=== PATIENT | male | born 1985 | race Caucasian/White ===

== ENCOUNTER 2019-04-03 14:27 | Emergency (ER) | payer MEDICAID, OTHER ==
[~2019-04-03] VITALS: Ht 180.3 cm; Wt 86.4 kg
[~2019-04-03 14:27] MED LIST: ACET-2119 PO; BENZ1TAB7 PO; CITA-311 PO; HALO10TA13 PO; HALO5TAB PO
--- NOTE | 2019-04-03 15:26 | NUR ---
vascular study in progress
[2019-04-03 15:53] VITALS: BP 123/64
== END 2019-04-03 15:55 | disposition home or self-care (01) ==
LOC: ER 14:28
DX: I80.01 Phlebitis and thrombophlebitis of superficial vessels of right lower extremity (principal); F32.9 Major depressive disorder, single episode, unspecified; F15.90 Other stimulant use, unspecified, uncomplicated; F10.99 Alcohol use, unspecified with unspecified alcohol-induced disorder; Z98.890 Other specified postprocedural states; Z86.14 Personal history of Methicillin resistant Staphylococcus aureus infection; Z56.0 Unemployment, unspecified; Z88.5 Allergy status to narcotic agent; Z88.6 Allergy status to analgesic agent; Z79.899 Other long term (current) drug therapy; Y90.9 Presence of alcohol in blood, level not specified
CPT/HCPCS: 93971; 99284

== ENCOUNTER 2019-05-09 20:14 | Emergency (ER) | payer MEDICAID ==
[~2019-05-09] VITALS: Ht 180.3 cm; Wt 90.0 kg
[2019-05-09 20:25] VITALS: BP 126/87
[2019-05-09] MEDS ORDERED: triamcinolone acetonide 40mg/ml inj IM ONE (22:30)
[2019-05-09] MEDS ORDERED: PRED10TA23 PO (22:53)
== END 2019-05-09 23:05 | disposition home or self-care (01) ==
LOC: ER 20:15
DX: M25.532 Pain in left wrist (principal); L23.7 Allergic contact dermatitis due to plants, except food; F15.90 Other stimulant use, unspecified, uncomplicated; Z56.0 Unemployment, unspecified; Z98.890 Other specified postprocedural states; Z86.14 Personal history of Methicillin resistant Staphylococcus aureus infection; Z79.899 Other long term (current) drug therapy; Z88.5 Allergy status to narcotic agent
CPT/HCPCS: 73110; 96372; 99283; J3301

== ENCOUNTER 2019-07-18 10:36 | Emergency (ER) | payer MEDICAID ==
[~2019-07-18] VITALS: Ht 177.8 cm; Wt 78.1 kg
--- NOTE | 2019-07-18 12:19 | NUR ---
present with provider for physical exam
[2019-07-18] MEDS ORDERED: normal saline 1000ML IV soln IVB ONE (12:25)
[2019-07-18 12:36] LABS: CLARITY,URINE CLOUDY (Clear); COLOR,URINE YELLOW (Yellow); GLUCOSE, URINE NEGATIVE (Neg); KETONES,URINE NEGATIVE (Neg); LEUKOCYTE ESTERASE ,URINE SMALL (Neg); NITRITES, URINE POSITIVE (Neg); OCCULT BLOOD,URINE LARGE (Neg); PROTEIN,URINE 100 mg/dl (Neg)
[2019-07-18 12:42] LABS: UA COLLECTION TYPE NON-SPECIFIED
[2019-07-18 12:47] LABS: WBC,URINE 50-100 /HPF (0-4)
[2019-07-18 12:48] LABS: BACTERIA,URINE 4+ /HPF (Neg); MUCUS STRANDS MANY /LPF (Neg); RBC,URINE TNTC /HPF (0-2); SQUAMOUS EPITHELIAL CELL,UR MODERATE /LPF (FEW); TRANSITIONAL EPI CELLS,URINE MODERATE /HPF
[2019-07-18 12:49] LABS: HYALINE CASTS 0-3 /LPF (NEGATIVE); RENAL CELLS, URINE MODERATE /HPF
[2019-07-18 12:58] LABS: BASOPHILS % (AUTO) 0.5 % (0-1); EOSINOPHILS # (AUTO) 0.3 X10'3 (0-0.9); EOSINOPHILS % (AUTO) 3.2 % (0-6); HEMATOCRIT 43.2 % (42.0-52.0); HEMOGLOBIN 15.1 g/dl (14.0-17.9); LYMPHOCYTES # (AUTO) 1.2 X10'3 (1.1-4.8); LYMPHOCYTES % (AUTO) 14.4 % (21-51); MEAN CORPUSCULAR HEMOGLOBIN 29.9 PG (27.0-31.0); MEAN CORPUSCULAR VOLUME 85.3 FL (78-98); MEAN PLATELET VOLUME 6.8 FL (7.4-10.4); MONOCYTES # (AUTO) 0.3 X10'3 (0-0.9); MONOCYTES % (AUTO) 3.6 % (2-12); NEUTROPHILS # (AUTO) 6.7 X10'3 (1.8-7.7); NEUTROPHILS % (AUTO) 78.3 % (42-75); PLATELET COUNT 231 X10'3 (140-440); RED BLOOD COUNT 5.07 X10'6 (4.70-6.10); RED CELL DISTRIBUTION WIDTH 13.6 % (11.5-14.5); WHITE BLOOD COUNT 8.6 X10'3 (4.5-11.0)
[2019-07-18 13:16] LABS: ALBUMIN 3.6 G/DL (3.4-5.0); ALBUMIN/GLOBULIN RATIO 1.1 (1.1-1.5); ANION GAP 8 (8-16); BILIRUBIN,TOTAL 2.4 MG/DL (0.1-1.0); BLOOD UREA NITROGEN 10 MG/DL (7-18); BUN/CREATININE RATIO 10.9 (5.4-32.0); CALCIUM 9.1 MG/DL (8.5-10.1); CHLORIDE 103 MMOL/L (99-107); CREATININE 0.92 MG/DL (0.60-1.10); GLUCOSE 155 MG/DL (70-104); POTASSIUM 3.6 MMOL/L (3.5-5.1); SODIUM 138 MMOL/L (135-145); TOTAL CARBON DIOXIDE 26.7 MMOL/L (24-32); eGFR > 90 ML/MIN
[2019-07-18 13:17] LABS: ALANINE AMINOTRANSFERASE 23 U/L (12-78); ALKALINE PHOSPHATASE 103 IU/L (46-116); ASPARTATE AMINO TRANSFERASE 16 U/L (10-37); LIPASE 148 U/L (73-393)
[2019-07-18] MEDS ORDERED: PHEN-716 PO (13:18)
[2019-07-18] MEDS ORDERED: CEPH500C5 PO (13:18)
[2019-07-18 13:45] VITALS: BP 124/79
== END 2019-07-18 13:46 | disposition home or self-care (01) ==
LOC: ER 10:37
DX: N39.0 Urinary tract infection, site not specified (principal); R10.11 Right upper quadrant pain; R10.32 Left lower quadrant pain; F15.90 Other stimulant use, unspecified, uncomplicated; Z56.0 Unemployment, unspecified; Z98.890 Other specified postprocedural states; Z86.14 Personal history of Methicillin resistant Staphylococcus aureus infection; Z79.899 Other long term (current) drug therapy; Z88.5 Allergy status to narcotic agent; Z88.6 Allergy status to analgesic agent; Z87.442 Personal history of urinary calculi
CPT/HCPCS: 36415; 74176; 80053; 81001; 83690; 85025; 87077; 87088; 87186; 99284

== ENCOUNTER 2019-08-01 22:58 | Emergency (ER) | payer MEDICAID ==
[~2019-08-01] VITALS: Ht 180.3 cm; Wt 81.8 kg
[~2019-08-01 22:58] MED LIST changes: +PHEN-716 PO
[2019-08-02] MEDS ORDERED: ORPH100T2 PO (00:03)
[2019-08-02] MEDS ORDERED: orphenadrine citrate 60mg/2ml inj. IM ONE (00:05)
[2019-08-02 00:23] VITALS: BP 107/64
== END 2019-08-02 00:27 | disposition home or self-care (01) ==
LOC: ER 22:59
DX: M54.12 Radiculopathy, cervical region (principal); F32.9 Major depressive disorder, single episode, unspecified; F15.90 Other stimulant use, unspecified, uncomplicated; Z98.890 Other specified postprocedural states; Z56.0 Unemployment, unspecified; Z88.5 Allergy status to narcotic agent; Z86.14 Personal history of Methicillin resistant Staphylococcus aureus infection
CPT/HCPCS: 96372; 99283; J2360

== ENCOUNTER 2019-08-04 21:55 | Emergency (ER) | payer MEDICAID ==
[~2019-08-04 21:55] MED LIST changes: +ORPH100T2 PO
== END 2019-08-05 00:01 | disposition left against medical advice (07) ==
LOC: ER 21:57
DX: M54.2 Cervicalgia (principal); Z53.21 Procedure and treatment not carried out due to patient leaving prior to being seen by health care provider

== ENCOUNTER 2019-08-06 15:35 | Emergency (ER) | payer MEDICAID ==
[~2019-08-06] VITALS: Ht 180.3 cm; Wt 77.4 kg
[2019-08-06 15:40] VITALS: BP 138/93
[2019-08-06] MEDS ORDERED: BUPIVAcaine/PF 7.5 mg/ml (0.75%) 30ml vial IJ ONE (16:10)
[2019-08-06] MEDS ORDERED: BUPIVAcaine/PF 7.5mg/ml (0.75%) 10ml vial IJ ONE (16:15)
[2019-08-06] MEDS ORDERED: BUPIVAcaine/PF 5 mg/ml 10ml IJ ONE (16:20)
[2019-08-06] MEDS ORDERED: BUPIVAcaine 0.5% inj/PF 30 ml vial IJ ONE (16:20)
== END 2019-08-06 17:07 | disposition home or self-care (01) ==
LOC: ER 15:36
DX: M54.2 Cervicalgia (principal); F32.9 Major depressive disorder, single episode, unspecified; F15.90 Other stimulant use, unspecified, uncomplicated; Z88.5 Allergy status to narcotic agent; Z88.8 Allergy status to other drugs, medicaments and biological substances; Z79.899 Other long term (current) drug therapy; Z98.890 Other specified postprocedural states; Z56.0 Unemployment, unspecified; Z72.89 Other problems related to lifestyle; Z86.14 Personal history of Methicillin resistant Staphylococcus aureus infection
CPT/HCPCS: 20552; 99284

== ENCOUNTER 2019-08-10 21:44 | Emergency (ER) | payer MEDICAID ==
[~2019-08-10] VITALS: Ht 180.3 cm; Wt 77.3 kg
[2019-08-10 21:55] VITALS: BP 127/91
[2019-08-10 22:17] LABS: CLARITY,URINE CLOUDY (Clear); COLOR,URINE YELLOW (Yellow); GLUCOSE, URINE NEGATIVE (Neg); KETONES,URINE NEGATIVE (Neg); LEUKOCYTE ESTERASE ,URINE SMALL (Neg); NITRITES, URINE NEGATIVE (Neg); OCCULT BLOOD,URINE LARGE (Neg); PH,URINE 7.5 (4.8-8.0); PROTEIN,URINE 100 mg/dl (Neg)
[2019-08-10 22:23] LABS: UA COLLECTION TYPE CLN CATCH MIDSTREAM
[2019-08-10 22:27] LABS: BACTERIA,URINE FEW /HPF (Neg); RBC,URINE 20-50 /HPF (0-2); RENAL CELLS, URINE MODERATE /HPF; SQUAMOUS EPITHELIAL CELL,UR FEW /LPF (FEW)
[2019-08-10 22:28] LABS: YEAST MODERATE /HPF (NEGATIVE)
[2019-08-10] MEDS ORDERED: LIDOcaine 5% patch TP STA (22:31)
[2019-08-10] MEDS ORDERED: cyclobenzaprine 10mg tablet PO ONE (22:35)
[2019-08-10] MEDS ORDERED: pregabalin 75mg capsule PO ONE (22:35)
[2019-08-10] MEDS ORDERED: HYDROcodone/acetaminophen 5mg/325mg tablet PO ONE (22:35)
[2019-08-10] MEDS ORDERED: ketorolac trometh. 30mg/ml inj. IM ONE (22:35)
[2019-08-10] MEDS ORDERED: CIPR-230 PO (22:37)
[2019-08-10] MEDS ORDERED: HYDR-4383 PO (22:37)
== END 2019-08-10 22:56 | disposition home or self-care (01) ==
LOC: ER 21:44
DX: M54.2 Cervicalgia (principal); N39.0 Urinary tract infection, site not specified; M25.511 Pain in right shoulder; F32.9 Major depressive disorder, single episode, unspecified; F15.90 Other stimulant use, unspecified, uncomplicated; Z86.14 Personal history of Methicillin resistant Staphylococcus aureus infection; Z86.19 Personal history of other infectious and parasitic diseases; Z72.89 Other problems related to lifestyle; Z98.890 Other specified postprocedural states; Z56.0 Unemployment, unspecified; Z88.5 Allergy status to narcotic agent; Z79.899 Other long term (current) drug therapy
CPT/HCPCS: 81001; 87088; 99284

== ENCOUNTER 2019-10-30 13:30 | Emergency (ER) | payer MEDICAID ==
[~2019-10-30] VITALS: Ht 180.3 cm; Wt 66.4 kg
[~2019-10-30 13:30] MED LIST changes: +HYDR-4383 PO
[2019-10-30 13:34] VITALS: BP 117/74
[2019-10-30] MEDS ORDERED: HYDR-3686 PO (14:26)
== END 2019-10-30 14:46 | disposition home or self-care (01) ==
LOC: ER 13:31
DX: F41.9 Anxiety disorder, unspecified (principal); F15.90 Other stimulant use, unspecified, uncomplicated; F32.9 Major depressive disorder, single episode, unspecified; F17.200 Nicotine dependence, unspecified, uncomplicated; Z86.14 Personal history of Methicillin resistant Staphylococcus aureus infection; Z98.890 Other specified postprocedural states; Z72.89 Other problems related to lifestyle; Z56.0 Unemployment, unspecified; Z88.5 Allergy status to narcotic agent; Z79.899 Other long term (current) drug therapy
CPT/HCPCS: 99283

== ENCOUNTER 2019-11-24 16:40 | Emergency (ER) | payer MEDICAID ==
[~2019-11-24] VITALS: Ht 180.3 cm; Wt 84.4 kg
[2019-11-24 16:51] VITALS: BP 110/65
[2019-11-24] MEDS ORDERED: CefTRIAXone 250MG IM Kit w/LIDOcaine IM ONE (17:30)
[2019-11-24] MEDS ORDERED: azithromycin 250mg tablet PO ONE (17:30)
== END 2019-11-24 18:16 | disposition home or self-care (01) ==
LOC: ER 16:40
DX: A54.9 Gonococcal infection, unspecified (principal); A74.9 Chlamydial infection, unspecified; F41.9 Anxiety disorder, unspecified; F32.9 Major depressive disorder, single episode, unspecified; F15.90 Other stimulant use, unspecified, uncomplicated; Z86.14 Personal history of Methicillin resistant Staphylococcus aureus infection; Z98.890 Other specified postprocedural states; Z72.89 Other problems related to lifestyle; Z56.0 Unemployment, unspecified; Z88.5 Allergy status to narcotic agent; Z88.6 Allergy status to analgesic agent; Z79.899 Other long term (current) drug therapy
CPT/HCPCS: 36415; 87491; 87591; 96372; 99283; J0696

== ENCOUNTER 2020-04-16 23:24 | Emergency (ER) | payer MEDICAID ==
[~2020-04-16] VITALS: Ht 180.3 cm; Wt 88.6 kg
[2020-04-16 23:34] VITALS: BP 136/91
== END 2020-04-17 00:46 | disposition left against medical advice (07) ==
LOC: ER 23:25
DX: R51.9 Headache, unspecified (principal); Z53.21 Procedure and treatment not carried out due to patient leaving prior to being seen by health care provider

== ENCOUNTER 2020-04-28 01:04 | Emergency (ER) | payer MEDICAID ==
[~2020-04-28] VITALS: Ht 180.3 cm; Wt 86.4 kg
[2020-04-28 01:10] VITALS: BP 129/90
[2020-04-28] MEDS ORDERED: DOXYCYCLINE 100MG CAPSULE PO STA (01:29)
[2020-04-28] MEDS ORDERED: DOXY100C43 PO (01:30)
== END 2020-04-28 01:48 | disposition home or self-care (01) ==
LOC: ER 01:05
DX: J34.0 Abscess, furuncle and carbuncle of nose (principal); B15.9 Hepatitis A without hepatic coma; F41.9 Anxiety disorder, unspecified; F32.9 Major depressive disorder, single episode, unspecified; F15.10 Other stimulant abuse, uncomplicated; Z56.0 Unemployment, unspecified; Z98.890 Other specified postprocedural states; Z88.5 Allergy status to narcotic agent; Z88.6 Allergy status to analgesic agent; Z79.899 Other long term (current) drug therapy; Z79.1 Long term (current) use of non-steroidal anti-inflammatories (NSAID)
CPT/HCPCS: 99283

== ENCOUNTER 2020-08-19 13:15 | Emergency (ER) | payer MEDICAID ==
[~2020-08-19] VITALS: Ht 182.9 cm; Wt 86.4 kg
[2020-08-19 13:33] VITALS: BP 114/76
--- NOTE | 2020-08-19 14:04 | NUR ---
Called to treatment area, not in lobby
--- NOTE | 2020-08-19 14:54 | NUR ---
Continues to not be in the lobby
--- NOTE | 2020-08-19 15:08 | NUR ---
Not in lobby
== END 2020-08-19 15:09 | disposition left against medical advice (07) ==
LOC: ER 13:16
DX: G58.9 Mononeuropathy, unspecified (principal); Z53.21 Procedure and treatment not carried out due to patient leaving prior to being seen by health care provider

== ENCOUNTER 2020-11-15 12:36 | Emergency (ER) | payer MEDICAID ==
[~2020-11-15] VITALS: Ht 180.3 cm; Wt 84.1 kg
[2020-11-15 13:45] VITALS: BP 133/82
[2020-11-15] MEDS ORDERED: benzonatate 100mg capsule PO ONE (14:15)
== END 2020-11-15 14:30 | disposition left against medical advice (07) ==
LOC: ER 12:36
DX: S05.01XA Injury of conjunctiva and corneal abrasion without foreign body, right eye, initial encounter (principal); K40.91 Unilateral inguinal hernia, without obstruction or gangrene, recurrent; H11.31 Conjunctival hemorrhage, right eye; F41.9 Anxiety disorder, unspecified; F32.9 Major depressive disorder, single episode, unspecified; Z56.0 Unemployment, unspecified; X58.XXXA Exposure to other specified factors, initial encounter; Y93.89 Activity, other specified; Y92.89 Other specified places as the place of occurrence of the external cause; Y99.8 Other external cause status
CPT/HCPCS: 71045; 99283

== ENCOUNTER 2020-11-16 14:45 | Emergency (ER) | payer MEDICAID ==
[~2020-11-16] VITALS: Ht 180.3 cm; Wt 86.4 kg
[2020-11-16 15:23] VITALS: BP 106/73
[2020-11-17] MEDS ORDERED: ALBU6.7H9 INH (06:10)
[2020-11-17] MEDS ORDERED: PRED20TA PO (06:10)
== END 2020-11-16 18:52 | disposition left against medical advice (07) ==
LOC: ER 14:46
DX: R51.9 Headache, unspecified (principal); Z53.21 Procedure and treatment not carried out due to patient leaving prior to being seen by health care provider

== ENCOUNTER 2020-11-17 04:29 | Emergency (ER) | payer MEDICAID ==
[~2020-11-17] VITALS: Ht 180.3 cm; Wt 84.0 kg
[2020-11-17 04:34] VITALS: BP 116/81
[2020-11-17] MEDS ORDERED: albuterol 2.5 MG/3 ML nebule NEB ONE ×2 (04:40→06:10)
[2020-11-17] MEDS ORDERED: predniSONE 20 mg tablet PO ONE (04:50)
[2020-11-17] MEDS ORDERED: PRED20TA PO (06:10)
[2020-11-17] MEDS ORDERED: ALBU6.7H9 INH (06:10)
== END 2020-11-17 06:51 | disposition home or self-care (01) ==
LOC: ER 04:30
DX: J45.901 Unspecified asthma with (acute) exacerbation (principal); Z20.822 Contact with and (suspected) exposure to COVID-19; F41.9 Anxiety disorder, unspecified; F32.9 Major depressive disorder, single episode, unspecified; F15.90 Other stimulant use, unspecified, uncomplicated; Z86.14 Personal history of Methicillin resistant Staphylococcus aureus infection; Z86.19 Personal history of other infectious and parasitic diseases; Z72.89 Other problems related to lifestyle; Z98.890 Other specified postprocedural states; Z56.0 Unemployment, unspecified; Z88.2 Allergy status to sulfonamides; Z88.5 Allergy status to narcotic agent; Z88.8 Allergy status to other drugs, medicaments and biological substances; Z88.6 Allergy status to analgesic agent; Z79.899 Other long term (current) drug therapy
CPT/HCPCS: 71045; 87635; 93005; 94640; 99285; C9803; J7512; 94760

== ENCOUNTER 2022-02-21 09:46 | Emergency (ER) | payer MEDICAID ==
[~2022-02-21] VITALS: Ht 180.3 cm; Wt 88.6 kg
[~2022-02-21 09:46] MED LIST changes: +ALBU6.7H9 INH
[2022-02-21 09:50] VITALS: BP 125/78
== END 2022-02-21 12:05 | disposition home or self-care (01) ==
LOC: ER 09:48
DX: M54.50 Low back pain, unspecified (principal); G89.29 Other chronic pain; F12.90 Cannabis use, unspecified, uncomplicated; F15.20 Other stimulant dependence, uncomplicated; Z88.2 Allergy status to sulfonamides; Z88.5 Allergy status to narcotic agent; Z88.6 Allergy status to analgesic agent; Z56.0 Unemployment, unspecified
CPT/HCPCS: 99284

== ENCOUNTER 2022-02-25 02:19 | Emergency (ER) | payer MEDICAID ==
[~2022-02-25] VITALS: Ht 180.3 cm; Wt 90.0 kg
[2022-02-25 02:36] VITALS: BP 134/90
[2022-02-25] MEDS ORDERED: LORazepam 1 MG tablet PO ONE (02:50)
== END 2022-02-25 03:50 | disposition home or self-care (01) ==
LOC: ER 02:19
DX: F41.9 Anxiety disorder, unspecified (principal); M54.89 Other dorsalgia; G89.29 Other chronic pain; F12.90 Cannabis use, unspecified, uncomplicated; F15.90 Other stimulant use, unspecified, uncomplicated; F32.A Depression, unspecified; Z86.19 Personal history of other infectious and parasitic diseases; Z86.14 Personal history of Methicillin resistant Staphylococcus aureus infection; Z98.890 Other specified postprocedural states; Z72.89 Other problems related to lifestyle; Z56.0 Unemployment, unspecified; Z88.6 Allergy status to analgesic agent; Z88.2 Allergy status to sulfonamides; Z88.5 Allergy status to narcotic agent; Z79.899 Other long term (current) drug therapy
CPT/HCPCS: 99283

== ENCOUNTER 2022-02-25 15:12 | Emergency (ER) | payer MEDICAID ==
[~2022-02-25] VITALS: Ht 180.3 cm; Wt 90.0 kg
[2022-02-25 15:20] VITALS: BP 110/76
[2022-02-25] MEDS ORDERED: HYDROcodone/acetaminophen 5mg/325mg tablet PO ONE (17:25)
== END 2022-02-25 18:48 | disposition left against medical advice (07) ==
LOC: ER 15:13
DX: M79.89 Other specified soft tissue disorders (principal); M79.602 Pain in left arm; G89.29 Other chronic pain; M54.9 Dorsalgia, unspecified; F31.9 Bipolar disorder, unspecified; F12.10 Cannabis abuse, uncomplicated; F15.10 Other stimulant abuse, uncomplicated; Z56.0 Unemployment, unspecified; Z86.14 Personal history of Methicillin resistant Staphylococcus aureus infection; Z88.6 Allergy status to analgesic agent; Z88.2 Allergy status to sulfonamides; Z88.5 Allergy status to narcotic agent; Z79.899 Other long term (current) drug therapy; Z79.1 Long term (current) use of non-steroidal anti-inflammatories (NSAID)
CPT/HCPCS: 73110; 73130; 99283; 99284

== ENCOUNTER 2022-04-05 10:41 | Emergency (ER) | payer MEDICAID ==
[~2022-04-05] VITALS: Ht 180.3 cm; Wt 86.0 kg
[~2022-04-05 10:41] MED LIST changes: +ALBU6.7H14 INH; -ALBU6.7H9 INH
[2022-04-05 12:27] LABS: BASOPHILS # (AUTO) 0.1 X10'3 (0-0.2); BASOPHILS % (AUTO) 1.1 % (0-1); EOSINOPHILS # (AUTO) 0.4 X10'3 (0-0.9); EOSINOPHILS % (AUTO) 6.5 % (0-6); HEMATOCRIT 43.6 % (42.0-52.0); HEMOGLOBIN 15.3 g/dl (14.0-17.9); LYMPHOCYTES # (AUTO) 1.1 X10'3 (1.1-4.8); LYMPHOCYTES % (AUTO) 20.3 % (21-51); MEAN CORPUSCULAR HEMOGLOBIN 30.1 PG (27.0-31.0); MEAN CORPUSCULAR HGB CONC 35.1 g/dL (33.0-36.5); MEAN CORPUSCULAR VOLUME 85.9 FL (78-98); MEAN PLATELET VOLUME 7.2 FL (7.4-10.4); MONOCYTES # (AUTO) 0.3 X10'3 (0-0.9); MONOCYTES % (AUTO) 4.8 % (2-12); NEUTROPHILS # (AUTO) 3.8 X10'3 (1.8-7.7); NEUTROPHILS % (AUTO) 67.3 % (42-75); PLATELET COUNT 212 X10'3 (140-440); RED BLOOD COUNT 5.07 X10'6 (4.70-6.10); RED CELL DISTRIBUTION WIDTH 13.9 % (11.5-14.5); WHITE BLOOD COUNT 5.6 X10'3 (4.5-11.0)
[2022-04-05 12:29] LABS: CLARITY,URINE CLEAR (Clear); COLOR,URINE YELLOW (Yellow); GLUCOSE, URINE NEGATIVE (Neg); KETONES,URINE NEGATIVE (Neg); LEUKOCYTE ESTERASE ,URINE NEGATIVE (Neg); NITRITES, URINE NEGATIVE (Neg); OCCULT BLOOD,URINE NEGATIVE (Neg); PROTEIN,URINE NEGATIVE (Neg); UROBILINOGEN,URINE 0.2 E.U/dL (0.2-1.0)
[2022-04-05 12:30] LABS: UA COLLECTION TYPE VOIDED
[2022-04-05 12:45] LABS: ALANINE AMINOTRANSFERASE 20 U/L (12-78); ALBUMIN 3.7 G/DL (3.4-5.0); ALBUMIN/GLOBULIN RATIO 1.2 (1.1-1.5); ALKALINE PHOSPHATASE 98 IU/L (46-116); ANION GAP 10 (8-16); ASPARTATE AMINO TRANSFERASE 14 U/L (10-37); BILIRUBIN,TOTAL 0.9 MG/DL (0.1-1.0); BLOOD UREA NITROGEN 13 MG/DL (7-18); BUN/CREATININE RATIO 16.3 (5.4-32.0); CALCIUM 8.7 MG/DL (8.5-10.1); CHLORIDE 107 MMOL/L (99-107); GLUCOSE 95 MG/DL (70-104); LIPASE 164 U/L (73-393); POTASSIUM 3.9 MMOL/L (3.5-5.1); SODIUM 144 MMOL/L (135-145); TOTAL PROTEIN 6.8 G/DL (6.4-8.2); eGFR > 90 ML/MIN
[2022-04-05] MEDS ORDERED: ondansetron 4mg rapidly disintigrating tab PO ONE (13:02)
[2022-04-05] MEDS ORDERED: ONDA4TAB12 PO (13:32)
[2022-04-05 13:41] VITALS: BP 130/73
== END 2022-04-05 13:46 | disposition home or self-care (01) ==
LOC: ER 10:42
DX: R10.11 Right upper quadrant pain (principal); R19.7 Diarrhea, unspecified; K59.00 Constipation, unspecified; K74.60 Unspecified cirrhosis of liver; G89.29 Other chronic pain; M54.9 Dorsalgia, unspecified; F31.9 Bipolar disorder, unspecified; F12.10 Cannabis abuse, uncomplicated; F15.10 Other stimulant abuse, uncomplicated; Z56.0 Unemployment, unspecified; Z86.14 Personal history of Methicillin resistant Staphylococcus aureus infection; Z88.2 Allergy status to sulfonamides; Z88.5 Allergy status to narcotic agent; Z88.6 Allergy status to analgesic agent; Z79.899 Other long term (current) drug therapy; Z79.1 Long term (current) use of non-steroidal anti-inflammatories (NSAID); Z79.2 Long term (current) use of antibiotics
CPT/HCPCS: 36415; 76700; 80053; 81003; 83690; 85025; 99284

== ENCOUNTER 2022-04-11 19:10 | Emergency (ER) | payer MEDICAID ==
[~2022-04-11 19:10] MED LIST changes: +ONDA4TAB12 PO
== END 2022-04-11 22:17 | disposition left against medical advice (07) ==
LOC: ER 19:11
DX: H57.10 Ocular pain, unspecified eye (principal); Z53.21 Procedure and treatment not carried out due to patient leaving prior to being seen by health care provider

== ENCOUNTER 2022-04-25 01:55 | Emergency (ER) | payer MEDICAID ==
[~2022-04-25] VITALS: Ht 180.3 cm; Wt 86.4 kg
[2022-04-25 02:03] VITALS: BP 137/57
== END 2022-04-25 02:24 | disposition left against medical advice (07) ==
LOC: ER 01:56
DX: Z04.6 Encounter for general psychiatric examination, requested by authority (principal); Z53.21 Procedure and treatment not carried out due to patient leaving prior to being seen by health care provider

== ENCOUNTER 2022-05-17 18:10 | Emergency (ER) | payer MEDICAID ==
[~2022-05-17] VITALS: Ht 180.3 cm; Wt 88.6 kg
--- NOTE | 2022-05-17 19:00 | NUR ---
Per poison control: Propanolol OD symptoms include hypotension, bradycardia, and increased risk of seizures. Treat symptomatically with fluid, pressors, glucagon, atropine, and benzos. Symptoms for Ablilify an Seroquel symptoms include tachycardia, siezures, and QTc prolongation. Primary treatment with benzodiazepines. Flomax is relatively benign. Labs to include CBC. CMP, acetaminophen level, aspirin level, and an EKG. Because of number of pills he has reported taking, pt should be on overnight observation.
[2022-05-17 19:08] LABS: ALANINE AMINOTRANSFERASE 16 U/L (12-78); ALBUMIN 3.7 G/DL (3.4-5.0); ALBUMIN/GLOBULIN RATIO 1.1 (1.1-1.5); ALKALINE PHOSPHATASE 99 IU/L (46-116); ANION GAP 10 (8-16); ASPARTATE AMINO TRANSFERASE 16 U/L (10-37); BASOPHILS # (AUTO) 0.1 X10'3 (0-0.2); BILIRUBIN,TOTAL 1.1 MG/DL (0.1-1.0); BLOOD UREA NITROGEN 18 MG/DL (7-18); BUN/CREATININE RATIO 20.5 (5.4-32.0); CALCIUM 8.9 MG/DL (8.5-10.1); CHLORIDE 106 MMOL/L (99-107); CREATININE 0.88 MG/DL (0.60-1.10); GLUCOSE 107 MG/DL (70-104); HEMOGLOBIN 15.6 g/dl (14.0-17.9); POTASSIUM 4.1 MMOL/L (3.5-5.1); SODIUM 142 MMOL/L (135-145); TOTAL CARBON DIOXIDE 26.2 MMOL/L (24-32); TOTAL PROTEIN 7.2 G/DL (6.4-8.2); eGFR > 90 ML/MIN
[2022-05-17 19:09] LABS: ACETAMINOPHEN < 2.0 UG/ML (10-30); ETHANOL < 0.010 GM/DL (0.0-0.010)
[2022-05-17 19:10] LABS: BASOPHILS % (AUTO) 1.2 % (0-1); EOSINOPHILS # (AUTO) 0.4 X10'3 (0-0.9); EOSINOPHILS % (AUTO) 6.2 % (0-6); HEMATOCRIT 44.4 % (42.0-52.0); LYMPHOCYTES # (AUTO) 1.8 X10'3 (1.1-4.8); LYMPHOCYTES % (AUTO) 26.4 % (21-51); MEAN CORPUSCULAR HEMOGLOBIN 30.5 PG (27.0-31.0); MEAN CORPUSCULAR HGB CONC 35.1 g/dL (33.0-36.5); MEAN CORPUSCULAR VOLUME 86.8 FL (78-98); MEAN PLATELET VOLUME 7.1 FL (7.4-10.4); MONOCYTES # (AUTO) 0.3 X10'3 (0-0.9); MONOCYTES % (AUTO) 4.9 % (2-12); NEUTROPHILS # (AUTO) 4.1 X10'3 (1.8-7.7); NEUTROPHILS % (AUTO) 61.3 % (42-75); PLATELET COUNT 299 X10'3 (140-440); RED BLOOD COUNT 5.12 X10'6 (4.70-6.10); RED CELL DISTRIBUTION WIDTH 13.6 % (11.5-14.5); WHITE BLOOD COUNT 6.8 X10'3 (4.5-11.0)
[2022-05-17] MEDS ORDERED: normal saline 1000ML IV soln IVB ONE (19:45)
[2022-05-17 23:31] LABS: CLARITY,URINE CLEAR (Clear); COLOR,URINE AMBER (Yellow); GLUCOSE, URINE NEGATIVE (Neg); KETONES,URINE NEGATIVE (Neg); LEUKOCYTE ESTERASE ,URINE NEGATIVE (Neg); NITRITES, URINE NEGATIVE (Neg); OCCULT BLOOD,URINE NEGATIVE (Neg); PROTEIN,URINE NEGATIVE (Neg); UROBILINOGEN,URINE 0.2 E.U/dL (0.2-1.0)
[2022-05-17 23:35] LABS: URINE AMPHETAMINE SCREEN NEGATIVE (Neg); URINE BARBITUATE SCREEN NEGATIVE (Neg); URINE BENZODIAZEPINES SCREEN NEGATIVE (Neg); URINE CANNABINOID SCREEN POSITIVE (Neg); URINE COCAINE SCREEN NEGATIVE (Neg); URINE METHADONE SCREEN NEGATIVE (Neg); URINE OPIATE SCREEN NEGATIVE (Neg); URINE PHENCYCLIDINE SCREEN NEGATIVE (Neg)
[2022-05-17 23:37] LABS: UA COLLECTION TYPE URINAL
[2022-05-18] MEDS ORDERED: normal saline 1000ML IV soln IVB ONE (02:50)
[2022-05-18 07:51] VITALS: BP 106/67
== END 2022-05-18 07:52 | disposition home or self-care (01) ==
LOC: ER 18:12
DX: T50.991A Poisoning by other drugs, medicaments and biological substances, accidental (unintentional), initial encounter (principal); R11.10 Vomiting, unspecified; G89.29 Other chronic pain; M54.9 Dorsalgia, unspecified; F31.9 Bipolar disorder, unspecified; F15.10 Other stimulant abuse, uncomplicated; F12.10 Cannabis abuse, uncomplicated; Z88.6 Allergy status to analgesic agent; Z88.2 Allergy status to sulfonamides; Z79.899 Other long term (current) drug therapy; Y92.89 Other specified places as the place of occurrence of the external cause
CPT/HCPCS: 36415; 80053; 80305; 80320; 80329; 81003; 85025; 93005; 96360; 96361; 99285; J7030; A6258

== ENCOUNTER 2022-05-23 17:00 | Emergency (ER) | payer MEDICAID ==
[~2022-05-23] VITALS: Ht 177.8 cm; Wt 72.7 kg
[2022-05-23] MEDS ORDERED: diazepam 5mg tablet PO ONE (17:30)
[2022-05-23 18:27] LABS: BASOPHILS # (AUTO) 0.1 X10'3 (0-0.2); EOSINOPHILS # (AUTO) 0.5 X10'3 (0-0.9); EOSINOPHILS % (AUTO) 6.4 % (0-6); HEMATOCRIT 48.5 % (42.0-52.0); HEMOGLOBIN 16.3 g/dl (14.0-17.9); LYMPHOCYTES # (AUTO) 1.6 X10'3 (1.1-4.8); LYMPHOCYTES % (AUTO) 21.4 % (21-51); MEAN CORPUSCULAR HEMOGLOBIN 29.3 PG (27.0-31.0); MEAN CORPUSCULAR HGB CONC 33.6 g/dL (33.0-36.5); MEAN CORPUSCULAR VOLUME 87.2 FL (78-98); MEAN PLATELET VOLUME 7.2 FL (7.4-10.4); MONOCYTES # (AUTO) 0.4 X10'3 (0-0.9); MONOCYTES % (AUTO) 4.9 % (2-12); NEUTROPHILS % (AUTO) 66.3 % (42-75); PLATELET COUNT 296 X10'3 (140-440); RED BLOOD COUNT 5.56 X10'6 (4.70-6.10); RED CELL DISTRIBUTION WIDTH 14.2 % (11.5-14.5); WHITE BLOOD COUNT 7.6 X10'3 (4.5-11.0)
[2022-05-23 18:40] LABS: ALANINE AMINOTRANSFERASE 17 U/L (12-78); ALBUMIN/GLOBULIN RATIO 1.1 (1.1-1.5); ALKALINE PHOSPHATASE 107 IU/L (46-116); ANION GAP 12 (8-16); ASPARTATE AMINO TRANSFERASE 16 U/L (10-37); BILIRUBIN,TOTAL 1.5 MG/DL (0.1-1.0); BLOOD UREA NITROGEN 15 MG/DL (7-18); BUN/CREATININE RATIO 18.8 (5.4-32.0); CALCIUM 9.1 MG/DL (8.5-10.1); CHLORIDE 104 MMOL/L (99-107); GLUCOSE 101 MG/DL (70-104); POTASSIUM 3.9 MMOL/L (3.5-5.1); SODIUM 142 MMOL/L (135-145); TOTAL CARBON DIOXIDE 25.6 MMOL/L (24-32); TOTAL PROTEIN 7.5 G/DL (6.4-8.2); eGFR > 90 ML/MIN
[2022-05-23 18:50] LABS: ETHANOL < 0.010 GM/DL (0.0-0.010)
[2022-05-23 18:58] LABS: ACETAMINOPHEN < 2.0 UG/ML (10-30)
[2022-05-23 19:23] LABS: URINE AMPHETAMINE SCREEN NEGATIVE (Neg); URINE BARBITUATE SCREEN NEGATIVE (Neg); URINE BENZODIAZEPINES SCREEN NEGATIVE (Neg); URINE CANNABINOID SCREEN POSITIVE (Neg); URINE COCAINE SCREEN NEGATIVE (Neg); URINE METHADONE SCREEN NEGATIVE (Neg); URINE OPIATE SCREEN NEGATIVE (Neg); URINE PHENCYCLIDINE SCREEN NEGATIVE (Neg)
[2022-05-23] MEDS ORDERED: ketamine 50 mg/ml 10ml vial ONE (20:19)
[2022-05-23] MEDS ORDERED: ketamine 50 mg/ml 10ml vial IM ONE (20:20)
--- NOTE | 2022-05-23 21:18 | NUR ---
Pt attempted to elope. 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 Staff attempted to redirect pt back inside, however this did not work. Security and [employer] were called and the Pt began yelling, and fighting. Dr. Dennis ordered 200 mg of ketamine to be given IM stat. [employer] arrived, and additional staff arrived to help redirect pt. As ordered by EDMD, pt was placed in behavoral restraints and brought back into the hospital. Pt was placed back on the monitors and is being observed. Visitor was asked to leave, as she appeared to be the cause of the disruption.
[2022-05-23] MEDS ORDERED: ondansetron/PF 4mg/2ml inj IV ONE (21:25)
--- NOTE | 2022-05-23 21:28 | NUR ---
was going to start an IV to adm Some zofran to ease his nausea as he did vomit and he said no. made aware.
[2022-05-23] MEDS ORDERED: ondansetron 4mg rapidly disintigrating tab PO ONE (21:30)
--- NOTE | 2022-05-23 22:50 | NUR ---
Pt up to the BR, ambulated fine. He is pleasant and cooperative. Med rec was done. Signed by and faxed to the pharmacy.
[2022-05-23] MEDS ORDERED: QUET25TA PO (22:57)
[2022-05-23] MEDS ORDERED: QUEtiapine 25mg tablet PO SCH (23:26)
--- NOTE | 2022-05-24 02:41 | NUR ---
[facility] mental health packet faxed at [phone]
--- NOTE | 2022-05-24 05:54 | NUR ---
pt awaken for vitals, pt ambulated to bathroom and back w/o difficulty
[2022-05-24 05:59] VITALS: BP 120/71
--- NOTE | 2022-05-24 08:54 | NUR ---
tony sent packet to [facility] at [phone].
== END 2022-05-24 14:16 ==
LOC: EEVIPCON 17:01 → ER 17:01
DX: R45.851 Suicidal ideations (principal); F12.10 Cannabis abuse, uncomplicated; F15.10 Other stimulant abuse, uncomplicated; G89.29 Other chronic pain; M54.9 Dorsalgia, unspecified; F31.9 Bipolar disorder, unspecified
CPT/HCPCS: 36415; 80053; 80305; 80320; 80329; 84443; 85025; 99285; C2617; J3490

== ENCOUNTER 2022-06-06 23:35 | Emergency (ER) | payer MEDICAID ==
[~2022-06-06] VITALS: Ht 180.3 cm; Wt 77.3 kg
[~2022-06-06 23:35] MED LIST changes: -ACET-2119 PO; -ALBU6.7H14 INH; -BENZ1TAB7 PO; -CITA-311 PO; -HALO10TA13 PO; -HALO5TAB PO; -HYDR-4383 PO; -ONDA4TAB12 PO; -ORPH100T2 PO; -PHEN-716 PO; +QUET25TA PO
[2022-06-06 23:54] VITALS: BP 124/77
[2022-06-07] MEDS ORDERED: OLANZapine 2.5MG tablet PO SCH ×2 (00:50→08:00)
== END 2022-06-07 01:09 | disposition home or self-care (01) ==
LOC: ER 23:39
DX: F15.10 Other stimulant abuse, uncomplicated (principal); F41.9 Anxiety disorder, unspecified; G89.29 Other chronic pain; F32.9 Major depressive disorder, single episode, unspecified; F17.200 Nicotine dependence, unspecified, uncomplicated; F12.90 Cannabis use, unspecified, uncomplicated; Z56.0 Unemployment, unspecified; Z86.19 Personal history of other infectious and parasitic diseases; Z72.89 Other problems related to lifestyle; Z88.2 Allergy status to sulfonamides; Z88.5 Allergy status to narcotic agent; Z88.6 Allergy status to analgesic agent; Z79.899 Other long term (current) drug therapy; Z98.890 Other specified postprocedural states
CPT/HCPCS: 99283

== ENCOUNTER 2022-06-07 04:08 | Emergency (ER) | payer MEDICAID ==
[~2022-06-07] VITALS: Ht 180.3 cm; Wt 77.0 kg
[2022-06-07 07:38] LABS: BASOPHILS % (AUTO) 0.7 % (0-1); EOSINOPHILS # (AUTO) 0.3 X10'3 (0-0.9); EOSINOPHILS % (AUTO) 4.6 % (0-6); HEMATOCRIT 42.3 % (42.0-52.0); LYMPHOCYTES # (AUTO) 1.1 X10'3 (1.1-4.8); LYMPHOCYTES % (AUTO) 18.1 % (21-51); MEAN CORPUSCULAR HEMOGLOBIN 30.2 PG (27.0-31.0); MEAN CORPUSCULAR HGB CONC 35.5 g/dL (33.0-36.5); MEAN CORPUSCULAR VOLUME 85.1 FL (78-98); MEAN PLATELET VOLUME 7.5 FL (7.4-10.4); MONOCYTES # (AUTO) 0.3 X10'3 (0-0.9); MONOCYTES % (AUTO) 5.5 % (2-12); NEUTROPHILS # (AUTO) 4.2 X10'3 (1.8-7.7); NEUTROPHILS % (AUTO) 71.1 % (42-75); PLATELET COUNT 206 X10'3 (140-440); RED BLOOD COUNT 4.97 X10'6 (4.70-6.10); RED CELL DISTRIBUTION WIDTH 13.8 % (11.5-14.5); WHITE BLOOD COUNT 5.9 X10'3 (4.5-11.0)
[2022-06-07 07:44] LABS: ALANINE AMINOTRANSFERASE 35 U/L (12-78); ALBUMIN 3.5 G/DL (3.4-5.0); ALBUMIN/GLOBULIN RATIO 1.1 (1.1-1.5); ALKALINE PHOSPHATASE 105 IU/L (46-116); ANION GAP 7 (8-16); ASPARTATE AMINO TRANSFERASE 33 U/L (10-37); BILIRUBIN,TOTAL 0.9 MG/DL (0.1-1.0); BLOOD UREA NITROGEN 17 MG/DL (7-18); BUN/CREATININE RATIO 20.7 (5.4-32.0); CALCIUM 8.5 MG/DL (8.5-10.1); CHLORIDE 105 MMOL/L (99-107); CREATININE 0.82 MG/DL (0.60-1.10); ETHANOL < 0.010 GM/DL (0.0-0.010); GLUCOSE 102 MG/DL (70-104); POTASSIUM 3.8 MMOL/L (3.5-5.1); SODIUM 139 MMOL/L (135-145); TOTAL CARBON DIOXIDE 26.9 MMOL/L (24-32); TOTAL PROTEIN 6.7 G/DL (6.4-8.2); eGFR > 90 ML/MIN
[2022-06-07 07:45] LABS: ACETAMINOPHEN < 2.0 UG/ML (10-30)
[2022-06-07 07:55] LABS: URINE AMPHETAMINE SCREEN POSITIVE (Neg); URINE BARBITUATE SCREEN NEGATIVE (Neg); URINE BENZODIAZEPINES SCREEN NEGATIVE (Neg); URINE CANNABINOID SCREEN NEGATIVE (Neg); URINE COCAINE SCREEN NEGATIVE (Neg); URINE METHADONE SCREEN NEGATIVE (Neg); URINE OPIATE SCREEN NEGATIVE (Neg); URINE PHENCYCLIDINE SCREEN NEGATIVE (Neg)
[2022-06-07 10:09] VITALS: BP 115/78
== END 2022-06-07 15:30 | disposition home or self-care (01) ==
LOC: ER 04:10
DX: F15.10 Other stimulant abuse, uncomplicated (principal); Z20.822 Contact with and (suspected) exposure to COVID-19; R45.851 Suicidal ideations; G89.29 Other chronic pain; F41.9 Anxiety disorder, unspecified; F32.A Depression, unspecified; F12.90 Cannabis use, unspecified, uncomplicated; Z86.19 Personal history of other infectious and parasitic diseases; Z86.14 Personal history of Methicillin resistant Staphylococcus aureus infection; Z98.890 Other specified postprocedural states; Z72.89 Other problems related to lifestyle; Z56.0 Unemployment, unspecified; Z88.6 Allergy status to analgesic agent; Z88.2 Allergy status to sulfonamides; Z88.5 Allergy status to narcotic agent; Z79.899 Other long term (current) drug therapy
CPT/HCPCS: 36415; 80053; 80305; 80320; 80329; 85025; 87635; 99285; C9803; 99283

== ENCOUNTER 2022-06-07 20:28 | Emergency (ER) | payer MEDICAID ==
[~2022-06-07] VITALS: Ht 180.3 cm; Wt 77.3 kg
--- NOTE | 2022-06-08 00:29 | NUR ---
pt here for "anxiety", however, pt is asleep when RN entered room for asessment and did not awaken to verbal stimuli.
== END 2022-06-08 00:52 | disposition home or self-care (01) ==
LOC: ER 20:28
DX: F15.10 Other stimulant abuse, uncomplicated (principal); F41.9 Anxiety disorder, unspecified; G89.29 Other chronic pain; F32.9 Major depressive disorder, single episode, unspecified; F12.90 Cannabis use, unspecified, uncomplicated; Z86.19 Personal history of other infectious and parasitic diseases; Z98.890 Other specified postprocedural states; Z79.899 Other long term (current) drug therapy; Z88.2 Allergy status to sulfonamides; Z88.6 Allergy status to analgesic agent; Z88.8 Allergy status to other drugs, medicaments and biological substances; Z86.14 Personal history of Methicillin resistant Staphylococcus aureus infection
CPT/HCPCS: 99281